=== PATIENT | male | born 1960 | race Caucasian/White ===

== ENCOUNTER 2018-04-19 11:39 | Inpatient (IN) | payer OTHER ==
[~2018-04-19] VITALS: Ht 180.3 cm; Wt 78.5 kg
[2018-04-19] VITALS (22 sets, daily range): BP systolic 78–108; BP diastolic 57–98; PULSE 48–80; RESP 13–33; Ht 180.3 cm; Wt 78.5 kg
--- NOTE | 2018-04-19 12:13 | CONS ---
Assessment/Plan Assessment/Plan Assessment/Plan (Daily) 1. ESRD on HD 2. severe sepsis due to PNA 3 . Pneumonia 4. recurrent symptomatic ascites 5. 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 Coagulopathy with thrombocytopenia due to liver cirrhosis 7. H/O HTN 8. Leucocytosis due to severe PNA Plan: seen in ED, BP improved with IV albumin given going to ICU pt regular schedule for HD is TTS, no HD today and tomorrow, will plan for next HD on Vitamin K for coaugloapthy, pt need Paracentesis for ascites, ok to give FFp and Vitamin K, to get procedure done, we will provide HD support if pt gets volume overloaded Thanks for consultation, i will continue to follow up Consultation Date/Type/Reason Admit Date/Time 04/19/18 Date of Consultation: Apr 19, 2018 Type of Consult NEPHROLOGY Reason for Consultation ESRD on HD with Hypotension Requesting Provider: SELVIN SMITH Date/Time of Note DATE: 04/19/18 TIME: 12:09 Hx of Present Illness 58 y/o male with past medical history significant only for end-stage renal disease on hemodialysis, alcoholic liver cirrhosis, thrombus cytopenia and anemia who presents to [facility] after being found hypotensive at his dialysis center. Patient arrived to his dialysis center complain of some neck pain and almost immediately after was found to have very low blood pressure was sent to the hospital. Patient is a resident at [facility] About 3 months before he was admitted ot [facility] and had been started on HD for type II hepatorenal syndrome, he has ESLD with Recurrent ascites, pt has been on lasix and aldacotne at [facility] faciliyt Today he could not finish HD due to back pain and low BP- sent to [facility] ER Constitutional: disoriented Eyes: no complaints Respiratory: pleuritic pain, shortness of breath Cardiovascular: chest pain Gastrointestinal: pain, decreased appetite, other (distensin of abdomen ) Genitourinary: no complaints Musculoskeletal: back pain, bone/joint pain, neck pain Skin: no complaints Neurologic: no complaints Endocrine: no complaints Lymphatic: no complaints Psychological: no complaints Immunologic: no complaints Past Medical History Medical History: other (ESLD due to alcoholic liver cirrhsosi, ESRD on HD , Type II HRS, Coagulopathy) Home Meds Reported Medications Thiamine* (Thiamine*) 50 Mg Tablet, 100 MG PO DAILY, TAB 04/19/18 Spironolactone* (Aldactone*) 25 Mg Tablet, 12.5 MG PO DAILY, #60 TAB 04/19/18 Guaifenesin-Dextromethorphan* (Robitussin* DM) 100MG/10MG/5ML Syrup, 10 ML PO Q6H PRN for COUGH, ML 04/19/18 Multivit/Ca Carb/B Cmplx/Fa* (Simran-Kee*) 1 Tab Tab, 1 TAB PO DAILY, TAB 04/19/18 Amino Acids/Protein Hydrolys (Pro-Stat 64 Liquid) 887 Ml Liquid, 30 ML PO BID 04/19/18 Pantoprazole* (Pantoprazole*) 40 Mg Tablet.dr, 40 MG PO AC BREAKFAST, TAB 04/19/18 Hydrocodone/Acetaminophen ([place] 5-325 Tablet) 1 Each Tablet, 1 EACH PO Q12 PRN for SEVERE PAIN LEVEL 7-10, TAB 04/19/18 Midodrine* (Midodrine*) 10 Mg Tablet, 10 MG PO TID PRN for ELEVATED BLOOD PRESSURE, TAB 04/19/18 Magnesium Oxide* (Magnesium Oxide*) 400 Mg Tablet, 400 MG PO BID, TAB 04/19/18 Lactulose* (Lactulose*) 20 Gm/30 Ml Solution, 20 GM PO TID PRN for CONSTIPATION, ML 04/19/18 Folic Acid* (Folic Acid*) 1 Mg Tablet, 1 MG PO DAILY, TAB 04/19/18 Epoetin Jose (Epogen) 10,000 Units/Ml Soln, 5000 UNITS SC TUE, THUR,SAT, VIAL 04/19/18 Allergies: Coded Allergies: No Known Allergy (Unverified , 04/19/18) Past Surgical History Past Surgical Hx: other (R chest permacath ) Family History Significant Family History: no pertinent family hx Social History Alcohol Use: none Drug Use: none Exam/Review of Systems Exam Vitals Vital Signs Date Temp Pulse Resp B/P (MAP) Pulse Ox O2 O2 Flow FiO2 Time Delivery Rate 04/19/18 97.7 90 15 76/58 (64) 100 11:44 Constitutional: distress (moderate ) Head: normocephalic ENMT: nl external ears & nose, other (no jaundice) Neck: supple, non-tender Respiratory: congested cough, crackles/rales, diminished breath sounds Cardiovascular: regular rate and rhythm, nl pulses Gastrointestinal: soft, ascites, distended Musculoskeletal: swelling (1-2+ pitting edema ) Extremities: normal pulses Neurological: [employer] II-XII intact, nl mental status Skin: nl turgor Lymph: nl lymph nodes SHEELA BELLA MD Apr 19, 2018 12:12
--- NOTE | 2018-04-19 12:16 | ERD ---
ER Documentation Chief Complaint Chief Complaint was @ HD, didnt finish HD - now hypotensive HPI The patient is a 58-year-old male, presenting to the ER from dialysis center, sent by his video game creator Dr. Sundar Hodge because of hypotensive 20 minutes into hemodialysis. He is awake, alert, able to answer question appropriately, he complains of chronic dyspnea and chronic chest discomfort, chronic abdominal discomfort. He denies fever, chills, complains of chronic neck pain, denies dysuria, diarrhea, constipation. He smokes, used to drink heavily until January 2018 Past medical history: Chronic kidney disease on hemodialysis Wednesday and Wednesday, cirrhosis, chronic pain syndrome Past surgical history: Right chest hemodialysis catheter, frequent paracentesis every 2 weeks, last paracentesis was about a week ago ROS All systems reviewed and are negative except as per history of present illness. Medications Home Meds Reported Medications Thiamine* (Thiamine*) 50 Mg Tablet, 100 MG PO DAILY, TAB 04/19/18 Spironolactone* (Aldactone*) 25 Mg Tablet, 12.5 MG PO DAILY, #60 TAB 04/19/18 Guaifenesin-Dextromethorphan* (Robitussin* DM) 100MG/10MG/5ML Syrup, 10 ML PO Q6H PRN for COUGH, ML 04/19/18 Multivit/Ca Carb/B Cmplx/Fa* (Simran-Kee*) 1 Tab Tab, 1 TAB PO DAILY, TAB 04/19/18 Amino Acids/Protein Hydrolys (Pro-Stat 64 Liquid) 887 Ml Liquid, 30 ML PO BID 04/19/18 Pantoprazole* (Pantoprazole*) 40 Mg Tablet.dr, 40 MG PO AC BREAKFAST, TAB 04/19/18 Hydrocodone/Acetaminophen ([place] 5-325 Tablet) 1 Each Tablet, 1 EACH PO Q12 PRN for SEVERE PAIN LEVEL 7-10, TAB 04/19/18 Midodrine* (Midodrine*) 10 Mg Tablet, 10 MG PO TID PRN for ELEVATED BLOOD PRESSURE, TAB 04/19/18 Magnesium Oxide* (Magnesium Oxide*) 400 Mg Tablet, 400 MG PO BID, TAB 04/19/18 Lactulose* (Lactulose*) 20 Gm/30 Ml Solution, 20 GM PO TID PRN for CONSTIPATION, ML 04/19/18 Folic Acid* (Folic Acid*) 1 Mg Tablet, 1 MG PO DAILY, TAB 04/19/18 Epoetin Jose (Epogen) 10,000 Units/Ml Soln, 5000 UNITS SC ADRIEN CRUZ,ZINA, VIAL 04/19/18 Allergies Allergies: Coded Allergies: No Known Allergy (Unverified , 04/19/18) Physical Exam Vitals Vital Signs Date Temp Pulse Resp B/P (MAP) Pulse Ox O2 O2 Flow FiO2 Time Delivery Rate 04/19/18 84 18 105/89 100 14:56 (94) 04/19/18 84 95/73 (80) 14:30 04/19/18 81 18 98/69 (79) 100 Room Air 14:07 04/19/18 87 18 97/67 (77) 100 Nasal 2.0 13:35 Cannula 04/19/18 88 19 85/57 (66) 96 Room Air 12:00 04/19/18 97.7 90 15 76/58 (64) 100 11:44 Physical Exam Const: No acute distress, pale Head: Atraumatic Eyes: Normal Conjunctiva ENT: Normal External Ears, Nose and Mouth. Neck: Full range of motion. No meningismus. Resp: Clear to auscultation bilaterally Cardio: Regular rate and rhythm, no murmurs Abd: Soft, ascites, nontender. Normal bowel sounds Skin: No petechiae or rashes Back: No midline or flank tenderness Ext: BL edema, no calf tenderness Neur: Awake and alert Psych: Normal Mood and Affect Result Diagram: 04/19/18 1230 04/19/18 1230 Results 24 hrs Laboratory Tests Test 04/19/18 12:30 04/19/18 12:36 04/19/18 14:46 White Blood Count 18.3 10^3/ul Red Blood Count 2.14 10^6/ul Hemoglobin 7.2 g/dl Hematocrit 21.5 % Mean Corpuscular Volume 100.5 fl Mean Corpuscular Hemoglobin 33.6 pg Mean Corpuscular 33.5 g/dl Hemoglobin Concent Red Cell Distribution Width 17.5 % Platelet Count 76 10^3/UL Mean Platelet Volume 12.0 fl Immature Granulocytes % 0.800 % Neutrophils % 77.3 % Lymphocytes % 9.1 % Monocytes % 11.9 % Eosinophils % 0.7 % Basophils % 0.2 % Nucleated Red Blood Cells % 0.0 /100WBC Immature Granulocytes # 0.150 10^3/ul Neutrophils # 14.1 10^3/ul Lymphocytes # 1.7 10^3/ul Monocytes # 2.2 10^3/ul Eosinophils # 0.1 10^3/ul Basophils # 0.0 10^3/ul Nucleated Red Blood Cells # 0.0 10^3/ul Prothrombin Time 32.0 Sec Prothrombin Time Ratio 2.5 INR International Normalized Ratio 3.10 Activated Partial Thromboplast > 180.0 Sec Time Sodium Level 128 mmol/L Potassium Level 5.0 mmol/L Chloride Level 93 mmol/L Carbon Dioxide Level 22 mmol/L Anion Gap 13 Blood Urea Nitrogen 30 mg/dl Creatinine 4.06 mg/dl Est Glomerular Filtrat Rate mL/min 15 mL/min Glucose Level 113 mg/dl Calcium Level 8.9 mg/dl Total Bilirubin 1.7 mg/dl Direct Bilirubin 0.10 mg/dl Indirect Bilirubin 1.6 mg/dl Aspartate Amino Transf (AST/SGOT) 47 IU/L Alanine 25 IU/L Aminotransferase (ALT/SGPT) Alkaline Phosphatase 143 IU/L Troponin I < 0.012 ng/ml Total Protein 5.8 g/dl Albumin 2.3 g/dl Globulin 3.50 g/dl Albumin/Globulin Ratio 0.65 Lipase 881 U/L POC Venous Lactate 4.1 mmol/L 2.9 mmol/L Current Medications Medications Dose Sig/Evans Start Time Status Last (Trade) Ordered Route PRN Stop Time Admin Dose Reason Admin Albumin 100 ml @ Q1H IV 04/19/18 DC 04/19/18 Human 100 mls/hr 12:30 13:43 04/19/18 14:29 Calcium 1,000 mg ONCE ONCE 04/19/18 DC 04/19/18 Chloride IV 13:00 12:53 (Ca Chloride 04/19/18 13:03 10% Syg) Vancomycin 250 ml @ ONCE ONCE 04/19/18 DC 04/19/18 HCl 125 mls/hr IVPB 13:00 13:43 04/19/18 14:59 Piperacillin 50 ml @ ONCE ONCE 04/19/18 DC 04/19/18 Sod/ 100 mls/hr IVPB 13:00 12:55 Tazobactam 04/19/18 13:29 Sod Vancomycin VANCOMYCIN PER 04/19/18 HCl (Vanco PER PHARMACY PROTOCOL XX 14:00 Iv Per Pharmacy) Piperacillin 100 ml @ Q6 IVPB 04/19/18 UNV Sod/ 200 mls/hr 18:00 Tazobactam Sod Sodium 1,000 ml @ Q24H IV 04/19/18 Chloride 40 mls/hr 13:41 IV Flush 3 ml PER 04/19/18 (NS 3 ml) PROTOCOL IV 14:00 Ondansetron 4 mg Q6H PRN 04/19/18 HCl (Zofran IV 14:00 Inj) NAUSEA/VOMITI NG Morphine 1 mg Q4H PRN 04/19/18 Sulfate IV .PAIN 14:00 (morphine) 7-10 40 mg DAILY@06 04/20/18 Pantoprazole IV 06:00 (Protonix Iv) 100 ml @ Q8H PRN 04/19/18 Acetaminophen 400 mls/hr IVPB fever 14:00 or pain 04/20/18 13:59 Piperacillin 50 ml @ Q8 IVPB 04/19/18 DC Sod/ 100 mls/hr 22:00 Tazobactam 04/19/18 22:00 Sod Piperacillin 50 ml @ Q6 IVPB 04/19/18 Sod/ 100 mls/hr 18:00 Tazobactam Sod Vancomycin 100 ml @ ONCE ONCE 04/19/18 HCl 100 mls/hr IVPB 16:00 04/19/18 16:59 10 mg ONCE ONCE 04/19/18 DC Phytonadione SC 15:00 (Vitamin K) 04/19/18 15:01 Procedures/[place] [id number] Radiology Main Line: [phone] DIAGNOSTIC IMAGING REPORT Patient: RJ HUDSON : 1960 Age: 58 Sex: M MR #: [id number] DOS: 04/19/18 1151 Ordering MD: JOSE BURGOS MD Location: E/R Room/Bed: PROCEDURE: XR chest. CLINICAL INDICATION: Possible sepsis TECHNIQUE: A single portable view of the chest was obtained. COMPARISON: None. FINDINGS: Right IJ central venous catheter ends in the right atrium. Right basilar opacity may represent atelectasis or airspace disease. The left lung is clear. There is no pleural effusion or pneumothorax. The cardiac and mediastinal contours are within normal limits. IMPRESSION: 1. Right basilar opacity representing atelectasis or airspace disease. RPTAT: AAEE Physician Doreen Date Time Electronically viewed and signed by Guillermo King Physician on 04/19/2018 13:08 RF/ CC: JOSE BURGOS MD Pending [phone] MEDICAL MAKING DECISION: The patient is a 58-year-old male, presenting with acute fluid overload, acute septic shock, acute pneumonia, recurrent ascites, acute coagulopathy, hyponatremia, suspected pancreatitis. He was treated with albumin 25% 200 mL IV for acute hypotension, calcium chloride 1 g IV due to mis sed dialysis to stabilize cardiac membrane prior to availability of the labs, vancomycin IV and Zosyn IV for acute septic shock He will require abdominal paracentesis when he is stable The differential diagnoses considered include but are not limited to pneumonia, aspiration pneumonia, UTI, pyelonephritis, SBP, pancreatitis MDM: Patient's infectious symptoms have not stabilized and the patient is at risk of rapid decompensation. The patient will be admitted for careful hydration, antibiotic therapy, and infectious source control. SEVERE SEPSIS CRITERIA: Infectious source: pna End organ damage indicated by: [Lactate > 2.0 mmol/L Hypotension (SBP < 90 or >40 mmHG drop or MAP < 65) Acute Resp Failure (sat < 92% w/o oxygen) Kiln Stoker > 2.0 INR > 1.5 Plt < 100 SEPSIS MANAGEMENT Time of recognition of septic shock:12:45 pm 3 HOUR BUNDLE Blood cultures x 2 before broad-spectrum antibiotics: [Yes] 30 ml/kg NS bolus [Not Completed b/c he has acute fluid overload Initial lactate []4.1 Repeat lactate Pending SEPTIC SHOCK ASSESSMENT: Yes lactic acid > 4.0 [No] Persistent hypotension (SBP < 90 or 40 mmHg drop, MAP < 65) despite 30 mL/kg IV fluid bolus VOLUME REASSESSMENT FOR SEPTIC SHOCK: Reevaluation Time: []14:56 hr Temp []97.7, BP []105/89, HR []84, RR[]18, Pox []100% Heart [Regular rate & rhythm] Lungs [No crackles] Skin [Warm & dry] Cap Refill [Less than 2 seconds] Peripheral pulses [Radially present] PERSISTENT HYPOTENSION TREATMENT: Comfort care [No] Central line [Not Required] but the hospitalist Dr Knapp requested it. IR Dr Gastelum will do it under fluro b/c INR 3.1 and platelet 76, I d/w with Dr Gastelum Vasopressor started [Not required] I considered further perfusion assessment with CVP measurement, SCVO2, bedside ultrasound volume assessment, passive leg raise, trial of further fluid bolus. And proceeded with [ broad spectrum antibiotics, and admission.] CRITICAL CARE Critical care time [35] minutes Emergent fluid management while maintaining close respiratory support. Provision of immediate and broad-spectrum antibiotic therapy. Simultaneous assessment for possible sources in order to direct targeted therapy. Consideration for invasive and chemical support to prevent cardiopulmonary collapse. Critical care time is independent of procedures performed. Departure Diagnosis: Primary Impression: Septic shock Additional Impressions: PNA (pneumonia) Fluid overload Coagulopathy Hyponatremia Pancreatitis Ascites Anemia Thrombocytopenia Condition: Critical Comments I discussed the findings with the patient. I discussed the patient with the hospitalist Dr Knapp at 1:20 pm. who was made aware of the lab, the treatment, the patient condition. The patient is admitted to ICU Disclaimer: Inadvertent spelling and grammatical errors are likely due to EHR/dictation software use and do not reflect on the overall quality of patient care. Also, please note that the electronic time recorded on this note does not necessarily reflect the actual time of the patient encounter. GEOVANNA TSAI MD Apr 19, 2018 12:16
[2018-04-19] MEDS: ALBUMIN HUMAN 25% 100 ML IV SCH ×3 (12:52→23:47)
[2018-04-19] MEDS ORDERED: PIPER-TAZO 2.25 GM (PMX) 50 ML IVPB ONE (13:00)
[2018-04-19] MEDS ORDERED: CA CHLORIDE 10% 10 ML SYRINGE IV ONE (13:00)
[2018-04-19] MEDS ORDERED: VANCOMYCIN 1 GM (PMX) 250 ML IVPB ONE (13:00)
[2018-04-19] MEDS ORDERED: SOD CHLORIDE 0.9% 1,000 ML IV SCH (13:41)
[2018-04-19] MEDS ORDERED: ACETAMINOPHEN 1000MG/100ML IV 100 ML IVPB PRN (14:00)
[2018-04-19] MEDS ORDERED: VANCOMYCIN IV PER PHARMACY XX SCH (14:00)
[2018-04-19] MEDS ORDERED: NACL 0.9% 3 ML SYG IV SCH (14:00)
[2018-04-19] MEDS ORDERED: ONDANSETRON 4 MG INJ IV PRN (14:00)
[2018-04-19] MEDS ORDERED: morphine 2 MG INJ IV PRN (14:00)
[2018-04-19] MEDS ORDERED: EPO10ESRD SC (14:51)
[2018-04-19] MEDS ORDERED: FOLI-49 PO (14:51)
[2018-04-19] MEDS ORDERED: LACT20SO2 PO (14:52)
[2018-04-19] MEDS ORDERED: MAGN400T28 PO (14:52)
[2018-04-19] MEDS ORDERED: MIDO10TA PO (14:52)
[2018-04-19] MEDS ORDERED: HYDR-4011 PO (14:53)
[2018-04-19] MEDS ORDERED: PANT40TA4 PO (14:53)
[2018-04-19] MEDS ORDERED: NEPH PO (14:54)
[2018-04-19] MEDS ORDERED: GUAI5SYR2 PO (14:54)
[2018-04-19] MEDS ORDERED: AMIN887L PO (14:54)
[2018-04-19] MEDS ORDERED: THIA50TA7 PO (14:55)
[2018-04-19] MEDS ORDERED: SPIR25TA PO (14:55)
[2018-04-19] MEDS ORDERED: PHYTONADIONE 10 MG/ML INJ SC ONE (15:00)
--- NOTE | 2018-04-19 15:21 | HP ---
Date/Time of Note Date/Time of Note DATE: 04/19/18 TIME: 15:21 Assessment/Plan VTE Prophylaxis Pharmacological prophylaxis: other Lines/Catheters IV Catheter Type (from Nrs): Saline Lock Assessment/Plan Hospital Course Patient is a male with past medical history significant only for end- stage renal disease on hemodialysis, alcoholic liver cirrhosis, thrombus cytopenia and anemia who presents to [facility] after being fo und hypotensive at his dialysis center. Patient arrived to his dialysis center complain of some neck pain and almost immediately after was found to have very low blood pressure was sent to the hospital. Currently patient is alert and oriented x4 and able to answer all questions. Patient has no acute complaints at this time except for generalized weakness and for chronic issues including chronic abdominal pain, chronic shortness of breath as well as chronic chest discomfort.. When asked if there are any acute issues of new pain or issues patient denies. Patient is a resident at [facility] Objective Physical exam General: Patient is laying in bed and answers questions appropriately Mentation: Patient is alert and oriented 4, Head: Normocephalic atraumatic Eyes: EOMI, pupils reactive to light Neck: Supple, nontender, midline Respiratory: Clear to auscultation bilaterally Cardiovascular: regular rate, no obvious murmurs Gastrointestinal: Massively distended abdomen, bowel sounds heard. Neurological: Unable to fully assess due to generalized weakness Skin: 2+ pitting edema in lower extremity bilaterally Assessment and plan Pneumonia -DuoNeb -IV antibiotic Severe sepsis -Responding to albumin, will add very low normal saline as patient is on dialy sis -Since albumin is transient, will obtain central venous catheter access and use pressors as necessary -Blood culture -Secondary to above pneumonia Alcoholic liver cirrhosis -Patient states that he only heard of this diagnosis today which is highly unlikely, patient states he had a distended abdomen for over many years -CT of the abdomen and pelvis pending -Continue spironolactone as blood pressure tolerates -Continue lactulose as blood pressure tolerates Elevated INR -Likely secondary to alcoholic liver cirrhosis -Vitamin K x1 subcu and reassess in a.m. Anemia -Patient does have a history of anemia, transfuse as needed likely due to anemia of chronic disease Elevated lipase -Patient has no new abdominal pain, likely chronic elevated lipase, however will monitor, continue patient only on clears and if continues to have pain will put n.p.o. -CT abdomen pelvis pending Hyponatremia -Patient is on hemodialysis and a cirrhotic, likely multifactorial with body hemodynamics, nephrology recommendations appreciated Disposition -Patient is alert and oriented x4 and stated that he would like to be DO NOT RESUSCITATE. Changed in the computer -ICU care for severe hypotension which may need pressors. Result Diagram: 04/19/18 1230 04/19/18 1230 Results 24hrs Laboratory Tests Test 04/19/18 12:30 04/19/18 12:36 04/19/18 14:46 White Blood Count 18.3 H Red Blood Count 2.14 L Hemoglobin 7.2 L Hematocrit 21.5 L Mean Corpuscular Volume 100.5 Mean Corpuscular Hemoglobin 33.6 H Mean Corpuscular Hemoglobin Concent 33.5 Red Cell Distribution Width 17.5 H Platelet Count 76 L Mean Platelet Volume 12.0 H Immature Granulocytes % 0.800 H Neutrophils % 77.3 H Lymphocytes % 9.1 L Monocytes % 11.9 H Eosinophils % 0.7 Basophils % 0.2 Nucleated Red Blood Cells % 0.0 Immature Granulocytes # 0.150 H Neutrophils # 14.1 H Lymphocytes # 1.7 Monocytes # 2.2 H Eosinophils # 0.1 Basophils # 0.0 Nucleated Red Blood Cells # 0.0 Prothrombin Time 32.0 H Prothrombin Time Ratio 2.5 INR International Normalized Ratio 3.10 Activated Partial Thromboplast Time > 180.0 *H Sodium Level 128 L Potassium Level 5.0 Chloride Level 93 L Carbon Dioxide Level 22 Anion Gap 13 Blood Urea Nitrogen 30 H Creatinine 4.06 H Est Glomerular Filtrat Rate mL/min 15 L Glucose Level 113 Calcium Level 8.9 Total Bilirubin 1.7 H Direct Bilirubin 0.10 Indirect Bilirubin 1.6 H Aspartate Amino Transf (AST/SGOT) 47 H Alanine Aminotransferase (ALT/SGPT) 25 Alkaline Phosphatase 143 H Troponin I < 0.012 Total Protein 5.8 L Albumin 2.3 L Globulin 3.50 H Albumin/Globulin Ratio 0.65 Lipase 881 H POC Venous Lactate 4.1 *H 2.9 *H HPI/ROS Admit Date/Time Admit Date/Time 04/19/18 PMH/Family/Social Past Medical History Medications Current Medications Vancomycin HCl (Vanco Iv Per Pharmacy) VANCOMYCIN PER PHARMACY PER PROTOCOL XX ; Start 04/19/18 at 14:00 Sodium Chloride 1,000 ml @ 40 mls/hr Q24H IV ; Start 04/19/18 at 13:41 IV Flush (NS 3 ml) 3 ml PER PROTOCOL IV ; Start 04/19/18 at 14:00 Ondansetron HCl (Zofran Inj) 4 mg Q6H PRN IV NAUSEA/VOMITING; Start 04/19/18 at 14:00 Morphine Sulfate (morphine) 1 mg Q4H PRN IV .PAIN 7-10; Start 04/19/18 at 14:00 Pantoprazole (Protonix Iv) 40 mg DAILY@06 IV ; Start 04/20/18 at 06:00 Acetaminophen 100 ml @ 400 mls/hr Q8H PRN IVPB fever or pain; Start 04/19/18 at 14:00; Stop 04/20/18 at 13:59 Piperacillin Sod/ Tazobactam Sod 50 ml @ 100 mls/hr Q6 IVPB ; Start 04/19/18 at 18:00 Vancomycin HCl 100 ml @ 100 mls/hr ONCE ONCE IVPB ; Start 04/19/18 at 16:00; Stop 04/19/18 at 16:59 Folic Acid (Folic Acid) 1 mg DAILY PO ; Start 04/20/18 at 09:00; Status UNV Lactulose (Enulose) 20 gm Q8 PO ; Start 04/20/18 at 14:00; Status UNV Midodrine (Proamatine) 10 mg Q8 PO ; Start 04/19/18 at 22:00; Status UNV Spironolactone (Aldactone) 12.5 mg DAILY PO ; Start 04/21/18 at 09:00; Status UNV Thiamine HCl (Vitamin B1) 100 mg DAILY PO ; Start 04/20/18 at 09:00; Status UNV Coded Allergies: No Known Allergy (Unverified , 04/19/18) Social History Smoking Status: Current some day smoker Exam/Review of Systems Vital Signs Vitals Vital Signs Date Temp Pulse Resp B/P (MAP) Pulse Ox O2 O2 Flow FiO2 Time Delivery Rate 04/19/18 84 18 105/89 100 14:56 (94) 04/19/18 Room Air 14:07 04/19/18 2.0 13:35 04/19/18 97.7 11:44 SELVIN SMITH Apr 19, 2018 15:21
[2018-04-19] MEDS ORDERED: ALBUTEROL/IPRATROPIUM (NEB) 3 ML AMP HHN PRN (15:30)
[2018-04-19] MEDS ORDERED: VANCOMYCIN 500 MG (PMX) 100 ML IVPB ONE (16:00)
[2018-04-19] MEDS ORDERED: PIPER-TAZO 3.375 GM IV (PMX) 100 ML IVPB SCH (18:00)
[2018-04-19] MEDS: PIPER-TAZO 2.25 GM/NS 50 ML IVPB SCH ×2 (18:16→23:53)
[2018-04-19] MEDS: ALBUTEROL/IPRATROPIUM (NEB) 3 ML AMP HHN SCH (20:00)
[2018-04-19] MEDS ORDERED: PIPER-TAZO 2.25 GM/NS 50 ML IVPB SCH (22:00)
[2018-04-19] MEDS: NORepinephrine 8MG/250 ML (PMX 250 ML IV SCH (22:16)
[2018-04-19] MEDS: MIDODRINE 5 MG TAB PO SCH (22:22)
[2018-04-19] MEDS ORDERED: HYDROCODONE/APAP (5/325) TAB PO PRN ×2 (23:30)
[2018-04-20] VITALS (93 sets, daily range): BP systolic 85–113; BP diastolic 59–82; PULSE 66–102; RESP 11–28
[2018-04-20] MEDS ORDERED: HYDROmorphONE 1 MG/ML SYG IV ONE (01:30)
[2018-04-20] MEDS: PANTOPRAZOLE 40 MG INJ IV SCH (05:59)
[2018-04-20] MEDS: MIDODRINE 5 MG TAB PO SCH ×3 (06:00→21:16)
[2018-04-20] MEDS: PIPER-TAZO 2.25 GM/NS 50 ML IVPB SCH ×2 (06:00→18:33)
[2018-04-20] MEDS: ALBUMIN HUMAN 25% 100 ML IV SCH (06:04)
[2018-04-20] MEDS ORDERED: PENDING SANTYL ORDER FOR WOUND CARE XX PRN (08:00)
[2018-04-20] MEDS: ALBUTEROL/IPRATROPIUM (NEB) 3 ML AMP HHN SCH ×3 (08:50→19:59)
--- NOTE | 2018-04-20 08:59 | CONS ---
Assessment/Plan Assessment/Plan Assessment/Plan (Daily) Assessment/Plan (Daily) 1. ESRD on HD 2. severe sepsis due to PNA 3 . Pneumonia 4. recurrent symptomatic ascites 5. 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 Coagulopathy with thrombocytopenia due to liver cirrhosis 7. H/O HTN 8. Leucocytosis due to severe PNA Plan: pt remaiend coagulopathic, no plan for HD today, s/p family meeting, they decided for comfort care no plan for HD tomorrow Consultation Date/Type/Reason Admit Date/Time Apr 19, 2018 at 13:43 Initial Consult Date 04/19/18 Type of Consult NEPHROLOGY Requesting Provider: SELVIN SMITH Date/Time of Note DATE: 04/20/18 TIME: 08:59 24 HR Interval Summary Free Text/Dictation pt stable but bP has been low, on levophed, Asictes + Exam/Review of Systems Exam Vitals Vital Signs Date Temp Pulse Resp B/P (MAP) Pulse Ox O2 O2 Flow FiO2 Time Delivery Rate 04/20/18 70 16 93/67 (76) 98 08:15 04/20/18 Nasal 2.0 08:02 Cannula 04/20/18 95.0 08:00 Intake and Output 04/19/18 04/19/18 04/20/18 1515:00 23:00 07:00 IntakeIntake Total 150 ml 407.03 ml 345.625 ml OutputOutput Total 0 ml BalanceBalance 150 ml 407.03 ml 345.625 ml Exam Constitutional: distress (moderate ) Head: normocephalic ENMT: nl external ears & nose, other (no jaundice) Neck: supple, non-tender Respiratory: congested cough, crackles/rales, diminished breath sounds Cardiovascular: regular rate and rhythm, nl pulses Gastrointestinal: soft, ascites, distended Musculoskeletal: swelling (1-2+ pitting edema ) Extremities: normal pulses Neurological: SILK OPENER II-XII intact, nl mental status Skin: nl turgor Lymph: nl lymph nodes Results Result Diagram: 04/20/18 0736 04/20/18 0430 Results 24hrs Laboratory Tests Test 04/19/18 12:30 04/19/18 12:36 04/19/18 14:46 04/19/18 16:54 White Blood Count 18.3 H Red Blood Count 2.14 L Hemoglobin 7.2 L Hematocrit 21.5 L Mean Corpuscular 100.5 Volume Mean Corpuscular 33.6 H Hemoglobin Mean Corpuscular 33.5 Hemoglobin Concent Red Cell 17.5 H Distribution Width Platelet Count 76 L Mean Platelet Volume 12.0 H Immature 0.800 H Granulocytes % Neutrophils % 77.3 H Lymphocytes % 9.1 L Monocytes % 11.9 H Eosinophils % 0.7 Basophils % 0.2 Nucleated Red Blood 0.0 Cells % Immature 0.150 H Granulocytes # Neutrophils # 14.1 H Lymphocytes # 1.7 Monocytes # 2.2 H Eosinophils # 0.1 Basophils # 0.0 Nucleated Red Blood 0.0 Cells # Prothrombin Time 32.0 H Prothrombin Time 2.5 Ratio INR International 3.10 Normalized Ratio Activated > 180.0 *H Partial Thromboplast Time Sodium Level 128 L Potassium Level 5.0 Chloride Level 93 L Carbon Dioxide Level 22 Anion Gap 13 Blood Urea Nitrogen 30 H Creatinine 4.06 H Est Glomerular 15 L Filtrat Rate mL/min Glucose Level 113 Calcium Level 8.9 Total Bilirubin 1.7 H Direct Bilirubin 0.10 Indirect Bilirubin 1.6 H Aspartate Amino 47 H Transf (AST/SGOT) Alanine 25 Aminotransferase (AL T/SGPT) Alkaline Phosphatase 143 H Troponin I < 0.012 Total Protein 5.8 L Albumin 2.3 L Globulin 3.50 H Albumin/Globulin 0.65 Ratio Lipase 881 H POC Venous Lactate 4.1 *H 2.9 *H Lactic Acid Level 2.8 *H Test 04/20/18 04:30 04/20/18 07:36 Platelet Count 66 L 57 #L Prothrombin Time 20.3 #H Prothrombin Time 1.6 Ratio INR International 1.73 Normalized Ratio Activated 51.1 H Partial Thromboplast Time Thrombin Time 19.2 H Sodium Level 128 L Potassium Level 4.2 Chloride Level 90 L Carbon Dioxide Level 22 Anion Gap 16 H Blood Urea Nitrogen 35 H Creatinine 4.45 H Est Glomerular 14 L Filtrat Rate mL/min Glucose Level 108 Calcium Level 9.7 Magnesium Level 2.5 Total Bilirubin 2.5 H Direct Bilirubin 0.50 #H Indirect Bilirubin 2.0 H Aspartate Amino 38 Transf (AST/SGOT) Alanine 24 Aminotransferase (AL T/SGPT) Alkaline Phosphatase 118 Ammonia 22 Total Protein 6.2 Albumin 3.2 L Globulin 3.00 Albumin/Globulin 1.06 Ratio White Blood Count 9.6 # Red Blood Count 1.75 L Hemoglobin 5.9 *L Hematocrit 17.5 L Mean Corpuscular 100.0 Volume Mean Corpuscular 33.7 H Hemoglobin Mean Corpuscular 33.7 Hemoglobin Concent Red Cell 17.5 H Distribution Width Mean Platelet Volume 11.3 H Immature 0.500 H Granulocytes % Neutrophils % Lymphocytes % Monocytes % Eosinophils % Basophils % Nucleated Red Blood 0.0 Cells % Immature 0.050 H Granulocytes # Neutrophils # Lymphocytes # Monocytes # Eosinophils # Basophils # Nucleated Red Blood Cells # Medications Medication Current Medications Vancomycin HCl (Vanco Iv Per Pharmacy) VANCOMYCIN PER PHARMACY PER PROTOCOL XX ; Start 04/19/18 at 14:00 IV Flush (NS 3 ml) 3 ml PER PROTOCOL IV ; Start 04/19/18 at 14:00 Ondansetron HCl (Zofran Inj) 4 mg Q6H PRN IV NAUSEA/VOMITING; Start 04/19/18 at 14:00 Morphine Sulfate (morphine) 1 mg Q4H PRN IV .PAIN 7-10 Last administered on 04/19/18at 20:03; Admin Dose 1 MG; Start 04/19/18 at 14:00 Pantoprazole (Protonix Iv) 40 mg DAILY@06 IV Last administered on 04/20/18at 05:59; Admin Dose 40 MG; Start 04/20/18 at 06:00 Acetaminophen 100 ml @ 400 mls/hr Q8H PRN IVPB fever or pain; Start 04/19/18 at 14:00; Stop 04/20/18 at 13:59 Piperacillin Sod/ Tazobactam Sod 50 ml @ 100 mls/hr Q6 IVPB Last administered on 04/20/18at 06:00; Admin Dose 100 MLS/HR; Start 04/19/18 at 18:00 Folic Acid (Folic Acid) 1 mg DAILY PO ; Start 04/20/18 at 09:00 Lactulose (Enulose) 20 gm Q8 PO ; Start 04/20/18 at 14:00 Midodrine (Proamatine) 10 mg Q8 PO Last administered on 04/19/18at 22:22; Admin Dose 10 MG; Start 04/19/18 at 22:00 Spironolactone (Aldactone) 12.5 mg DAILY PO ; Start 04/21/18 at 09:00 Thiamine HCl (Vitamin B1) 100 mg DAILY PO ; Start 04/20/18 at 09:00 Albuterol/ Ipratropium (Duoneb) 3 ml Q6HWA RESP THERAPY HHN Last administered on 04/20/18at 08:50; Admin Dose 3 ML; Start 04/19/18 at 20:00 Albuterol/ Ipratropium (Duoneb) 3 ml Q2H RESP THERAPY PRN HHN shortness of breath; Start 04/19/18 at 15:30 Norepinephrine 250 ml @ 1.875 mls/ hr TITRATE IV Last administered on 04/19/18at 22:16; Admin Dose 9.375 MLS/HR; Start 04/19/18 at 22:00 Acetaminophen/ Hydrocodone Bitart ([place] (5/325)) 1 tab Q4H PRN PO MODERATE PAIN LEVEL 4-6; Start 04/19/18 at 23:30 Acetaminophen/ Hydrocodone Bitart ([place] (5/325)) 2 tab Q4H PRN PO PAIN LEVEL 6-10 Last administered on 04/19/18at 23:45; Admin Dose 2 TAB; Start 04/19/18 at 23:30 Miscellaneous Information (Pending Santyl Order For Wound Care) This patient sibley... PRN PRN XX WOUND CARE; Start 04/20/18 at 08:00 SHEELA BELLA MD Apr 20, 2018 08:59
[2018-04-20] MEDS: FOLIC ACID 1 MG TAB PO SCH (09:49)
[2018-04-20] MEDS: THIAMINE 100 MG TAB PO SCH (09:49)
--- NOTE | 2018-04-20 10:18 | PN ---
Date/Time of Note Date/Time of Note DATE: 04/20/18 TIME: 10:13 Objective Vitals Vital Signs Date Temp Pulse Resp B/P (MAP) Pulse Ox O2 O2 Flow FiO2 Time Delivery Rate 04/20/18 86 20 98 Nasal 2.0 08:50 Cannula 04/20/18 93/67 (76) 08:15 04/20/18 95.0 08:00 Intake and Output 04/19/18 04/19/18 04/20/18 1515:00 23:00 07:00 IntakeIntake Total 150 ml 407.03 ml 345.625 ml OutputOutput Total 0 ml BalanceBalance 150 ml 407.03 ml 345.625 ml Results Result Diagram: 04/20/18 0736 04/20/18 0430 Medications Medications Current Medications Vancomycin HCl (Vanco Iv Per Pharmacy) VANCOMYCIN PER PHARMACY PER PROTOCOL XX ; Start 04/19/18 at 14:00 IV Flush (NS 3 ml) 3 ml PER PROTOCOL IV ; Start 04/19/18 at 14:00 Ondansetron HCl (Zofran Inj) 4 mg Q6H PRN IV NAUSEA/VOMITING; Start 04/19/18 at 14:00 Morphine Sulfate (morphine) 1 mg Q4H PRN IV .PAIN 7-10 Last administered on 04/19/18at 20:03; Admin Dose 1 MG; Start 04/19/18 at 14:00 Pantoprazole (Protonix Iv) 40 mg DAILY@06 IV Last administered on 04/20/18at 05:59; Admin Dose 40 MG; Start 04/20/18 at 06:00 Acetaminophen 100 ml @ 400 mls/hr Q8H PRN IVPB fever or pain; Start 04/19/18 at 14:00; Stop 04/20/18 at 13:59 Piperacillin Sod/ Tazobactam Sod 50 ml @ 100 mls/hr Q6 IVPB Last administered on 04/20/18at 06:00; Admin Dose 100 MLS/HR; Start 04/19/18 at 18:00 Folic Acid (Folic Acid) 1 mg DAILY PO Last administered on 04/20/18at 09:49; Admin Dose 1 MG; Start 04/20/18 at 09:00 Lactulose (Enulose) 20 gm Q8 PO ; Start 04/20/18 at 14:00 Midodrine (Proamatine) 10 mg Q8 PO Last administered on 04/19/18at 22:22; Admin Dose 10 MG; Start 04/19/18 at 22:00 Spironolactone (Aldactone) 12.5 mg DAILY PO ; Start 04/21/18 at 09:00 Thiamine HCl (Vitamin B1) 100 mg DAILY PO Last administered on 04/20/18at 09:49; Admin Dose 100 MG; Start 04/20/18 at 09:00 Albuterol/ Ipratropium (Duoneb) 3 ml Q6HWA RESP THERAPY HHN Last administered on 04/20/18at 08:50; Admin Dose 3 ML; Start 04/19/18 at 20:00 Albuterol/ Ipratropium (Duoneb) 3 ml Q2H RESP THERAPY PRN HHN shortness of breath; Start 04/19/18 at 15:30 Norepinephrine 250 ml @ 1.875 mls/ hr TITRATE IV Last administered on 04/19/18at 22:16; Admin Dose 9.375 MLS/HR; Start 04/19/18 at 22:00 Acetaminophen/ Hydrocodone Bitart ([place] (5/325)) 1 tab Q4H PRN PO MODERATE PAIN LEVEL 4-6; Start 04/19/18 at 23:30 Acetaminophen/ Hydrocodone Bitart ([place] (5/325)) 2 tab Q4H PRN PO PAIN LEVEL 6-10 Last administered on 04/19/18at 23:45; Admin Dose 2 TAB; Start 04/19/18 at 23:30 Miscellaneous Information (Pending [facility] Order For Wound Care) This patient sibley... PRN PRN XX WOUND CARE; Start 04/20/18 at 08:00 VTE Prophylaxis Risk score (from Nsg)>0 risk: 5 SCD applied (from Nsg): Yes Lines/Catheters IV Catheter Type: Maria in Place: Yes Cont'd maria catheter reason: urinary retention Assessment/Plan Hospital Course Subjective -Discussed with patient and patient's sister, both are stating that the patient is tired of his chronic condition, and would like to now pursue hospice. It was clearly explained that hospice would likely mean he would pass away soon as they would not dialyze him, patient understands the. Patient alert and oriented x4. Objective Physical exam General: Patient is laying in bed and answers questions appropriately Mentation: Patient is alert and oriented 4, Head: Normocephalic atraumatic Eyes: EOMI, pupils reactive to light Neck: Supple, nontender, midline Respiratory: Clear to auscultation bilaterally Cardiovascular: regular rate, no obvious murmurs Gastrointestinal: Massively distended abdomen, bowel sounds heard. Neurological: Able to move upper extremity, unable to move lower extremity due to generalized weakness, however sensation intact. Skin: 2+ pitting edema in lower extremity bilaterally Assessment and plan Pneumonia -DuoNeb -IV antibiotic Septic shock -Pressors as needed -Albumin as needed -Blood culture -Secondary to above pneumonia Alcoholic liver cirrhosis -Patient understands that he has had alcoholic liver cirrhosis for many years -CT of the abdomen and pelvis noted -Continue spironolactone as blood pressure tolerates -Continue lactulose as blood pressure tolerates Elevated INR -Likely secondary to alcoholic liver cirrhosis -Vitamin K x1 subcu, improved significantly Anemia -Patient does have a history of anemia, transfuse as needed likely due to anemia of chronic disease Elevated lipase -Patient has no new abdominal pain, likely chronic elevated lipase, however will monitor, continue patient only on clears and if continues to have pain will put n.p.o. -CT abdomen pelvis not showing acute pancreatitis Hyponatremia -Patient is on hemodialysis and a cirrhotic, likely multifactorial with body hemodynamics, nephrology recommendations appreciated Disposition -Patient is alert and oriented x4 and stated that he would like to be DO NOT RESUSCITATE. Changed in the computer -ICU care for severe hypotension which may need pressors. More than 40 minutes of been spent on this critical care encounter -Patient and patient's sister have expressed desire to be placed on hospice, patient would like to attempt to try outpatient home hospice at [facility] instead of hospice inpatient, will attempt to stabilize patient so will make stable for outpatient transfer, however if we cannot get off pressors we will have to consult general inpatient hospice. At this time patient states that if he continues to deteriorate that he is okay with not aggressively increasing care but would like the current care that he is getting right now to continue for now. Patient understands that with hospice he will not be getting dialysis and that he will likely pass away fairly quickly. SELVIN SMITH Apr 20, 2018 10:18
[2018-04-20] MEDS ORDERED: COLLAGENASE 30 GM TUBE TOP SCH (12:00)
[2018-04-20] MEDS ORDERED: COLLAGENASE 30 GM TUBE TOP PRN (12:00)
[2018-04-20] MEDS: ALBUMIN HUMAN 25% 50 ML IV SCH ×2 (12:07→18:44)
[2018-04-20] MEDS ORDERED: COLLAGENASE 5 GM (UD JAR) TOP PRN (12:30)
[2018-04-20] MEDS: COLLAGENASE 5 GM (UD JAR) TOP SCH (13:34)
[2018-04-20] MEDS ORDERED: LACTULOSE 30ML CUP PO SCH (14:00)
--- NOTE | 2018-04-20 15:05 | DS ---
Date/Time of Note Date/Time of Note DATE: 04/20/18 TIME: 15:04 Discharge Summary Admission/Discharge Info Admit Date/Time Apr 19, 2018 at 13:43 Discharge Date/Time Patient Condition: Stable Hospital Course Patient is a male with a past medical history significant for end- stage renal disease on hemodialysis as well as alcoholic liver cirrhosis who presented to [facility] from dialysis center for hypotension. After being treated for septic shock and in the ICU, it was conveyed to me by the patient and the patient's sister over the phone that they would like to pursue hospice care (comfort measures only). Was given patient's very poor situation with septic shock due to pneumonia, alcoholic liver cirrhosis that is end-stage with a significantly distended abdomen causing pain, as well as end- stage renal disease, it was made decision to place patient on hospice. Current measures will be continued with pressors as needed until inpatient hospice company can take over, pain medication for patient's generalized pain and abdominal pain will be administered as needed. Patient stated that he was tired of all his illnesses and he has no quality of life and would like to stop all medical measures at this time. Patient is currently waiting for family and will be made comfortable. Discharge diagnosis Pneumonia Septic shock Alcoholic liver cirrhosis, end-stage Elevated INR Anemia Hyponatremia End-stage renal disease on hemodialysis Thrombocytopenia Lactic acidosis Elevated bilirubin Home Meds Reported Medications Thiamine* (Thiamine*) 50 Mg Tablet, 100 MG PO DAILY, TAB 04/19/18 Spironolactone* (Aldactone*) 25 Mg Tablet, 12.5 MG PO DAILY, #60 TAB 04/19/18 Guaifenesin-Dextromethorphan* (Robitussin* DM) 100MG/10MG/5ML Syrup, 10 ML PO Q6H PRN for COUGH, ML 04/19/18 Multivit/Ca Carb/B Cmplx/Fa* (Simran-Kee*) 1 Tab Tab, 1 TAB PO DAILY, TAB 04/19/18 Amino Acids/Protein Hydrolys (Pro-Stat 64 Liquid) 887 Ml Liquid, 30 ML PO BID 04/19/18 Pantoprazole* (Pantoprazole*) 40 Mg Tablet.dr, 40 MG PO AC BREAKFAST, TAB 04/19/18 Hydrocodone/Acetaminophen ([place] 5-325 Tablet) 1 Each Tablet, 1 EACH PO Q12 PRN for SEVERE PAIN LEVEL 7-10, TAB 04/19/18 Midodrine* (Midodrine*) 10 Mg Tablet, 10 MG PO TID PRN for ELEVATED BLOOD PRESSURE, TAB 04/19/18 Magnesium Oxide* (Magnesium Oxide*) 400 Mg Tablet, 400 MG PO BID, TAB 04/19/18 Lactulose* (Lactulose*) 20 Gm/30 Ml Solution, 20 GM PO TID PRN for CONSTIPATION, ML 04/19/18 Folic Acid* (Folic Acid*) 1 Mg Tablet, 1 MG PO DAILY, TAB 04/19/18 Epoetin Jose (Epogen) 10,000 Units/Ml Soln, 5000 UNITS SC KADYE, ADRIEN,SAT, VIAL 04/19/18 Primary Care Provider Erik Hodge MD Time spent on discharge: > 30 minutes Pending Labs Laboratory Tests Test 04/19/18 16:54 04/20/18 04:30 04/20/18 06:15 04/20/18 07:36 Lactic Acid 2.8 Level mmol/L (0.5-2.0 ) Platelet Count 66 57 10^3/UL (140-41 10^3/UL (140-4 5) 15) Prothrombin 20.3 Time Sec (11.9-14.9) Prothrombin 1.6 Time Ratio INR 1.73 International Normalized Rati o Activated 51.1 Partial Thrombo Sec (23.0-35.0) plast Time Thrombin Time 19.2 SEC (13.8-19.1) Sodium Level 128 mmol/L (135-144 ) Potassium 4.2 Level mmol/L (3.5-5.1 ) Chloride Level 90 mmol/L (97-110) Carbon Dioxide 22 Level mmol/L (21-31) Anion Gap 16 (5-13) Blood Urea 35 mg/dl (7-20) Nitrogen Creatinine 4.45 mg/dl (0.61-1.2 4) Est Glomerular 14 mL/min (>60) Filtrat Rate mL/min Glucose Level 108 mg/dl (70-220) Calcium Level 9.7 mg/dl (8.4-10.2 ) Magnesium 2.5 Level mg/dl (1.7-2.5) Total 2.5 Bilirubin mg/dl (0.2-1.3) Direct 0.50 Bilirubin mg/dl (0.00-0.2 0) Indirect 2.0 Bilirubin mg/dl (0-1.1) Aspartate Amino 38 IU/L (15-46) Transf (AST/SGO T) Alanine 24 IU/L (13-69) Aminotransferas e (ALT/SGPT) Alkaline 118 Phosphatase IU/L (42-121) Ammonia 22 umol/l (9-30) Total Protein 6.2 g/dl (6.1-8.1) Albumin 3.2 g/dl (3.3-4.9) Globulin 3.00 g/dl (1.3-3.2) Albumin/Globuli 1.06 n Ratio Hemoglobin A1c % (0-5.9) White Blood 9.6 Count 10^3/ul (4.8-1 0.8) Red Blood 1.75 Count 10^6/ul (4.70- 6.10) Hemoglobin 5.9 g/dl (14.0-18. 0) Hematocrit 17.5 % (42.0-52.0) Mean 100.0 Corpuscular fl (82.0-101.0 Volume ) Mean 33.7 Corpuscular pg (29.0-33.0) Hemoglobin Mean 33.7 Corpuscular g/dl (32.0-37. Hemoglobin Conc 0) ent Red Cell 17.5 Distribution % (11.5-14.5) Width Mean Platelet 11.3 Volume fl (7.4-10.4) Immature 0.500 Granulocytes % % (0.001-0.429 ) Neutrophils % % (39.0-77.0) Segmented 88 % (39-77) Neutrophils % (Manual) Lymphocytes % % (15.0-51.0) Lymphocytes % 8 % (15-51) (Manual) Monocytes % % (0.0-11.0) Monocytes % 3 % (0-11) (Manual) Eosinophils % % (0.0-7.0) Eosinophils % 1 % (0-7) (Manual) Basophils % % (0.0-2.0) Nucleated Red 0.0 Blood Cells % /100WBC (0.0-0 .0) Immature 0.050 Granulocytes # 10^3/ul (0.0-0 .031) Neutrophils # 10^3/ul (1.6-7 .5) Lymphocytes 0.7 (Manual) 10^3/ul (0.8-2 .9) Lymphocytes # 10^3/ul (0.8-2 .9) Monocytes # 10^3/ul (0.3-0 .9) Monocytes # 0.2 (Manual) 10^3/ul (0.3-0 .9) Eosinophils # 10^3/ul (0.0-0 .5) Basophils # 10^3/ul (0.0-0 .1) Nucleated Red 10^3/ul (0.0-0 Blood Cells # .0) Toxic 1+ (0-0) Granulation Platelet DECREASED Estimate Polychromasia 1+ (0-0) Hypochromasia 2+ (0-0) Anisocytosis 2+ (0-0) Macrocytosis 2+ (0-0) Target Cells 1+ (0-0) Path Consult JESS MADISON Signing MD rosalee Nye DAVID J Apr 20, 2018 15:05
[2018-04-20] MEDS: HYDROmorphONE 0.5 MG/0.5 ML SYG IV PRN (18:29)
[2018-04-20] MEDS: NORepinephrine 8MG/250 ML (PMX 250 ML IV SCH (21:30)
[2018-04-21] VITALS (65 sets, daily range): BP systolic 84–115; BP diastolic 63–83; PULSE 42–101; RESP 10–30
[2018-04-21] MEDS: ALBUMIN HUMAN 25% 50 ML IV SCH (03:13)
[2018-04-21] MEDS: PIPER-TAZO 2.25 GM/NS 50 ML IVPB SCH (05:25)
[2018-04-21] MEDS: MIDODRINE 5 MG TAB PO SCH ×2 (06:29→14:00)
[2018-04-21] MEDS: PANTOPRAZOLE 40 MG INJ IV SCH (06:29)
[2018-04-21] MEDS: ALBUTEROL/IPRATROPIUM (NEB) 3 ML AMP HHN SCH ×3 (08:00→20:00)
[2018-04-21] MEDS: FOLIC ACID 1 MG TAB PO SCH (09:00)
[2018-04-21] MEDS: THIAMINE 100 MG TAB PO SCH (09:00)
[2018-04-21] MEDS ORDERED: SPIRONOLACTONE 25 MG TAB PO SCH (09:00)
[2018-04-21] MEDS: COLLAGENASE 5 GM (UD JAR) TOP SCH (09:00)
--- NOTE | 2018-04-21 10:22 | CONS ---
Assessment/Plan Assessment/Plan Assessment/Plan (Daily) 1. ESRD on HD 2. severe sepsis due to PNA 3 . Pneumonia 4. recurrent symptomatic ascites 5. 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 Coagulopathy with thrombocytopenia due to liver cirrhosis 7. H/O HTN 8. Leucocytosis due to severe PNA Plan: family decided for inpatient hospice care will sign off, call us if any question s Consultation Date/Type/Reason Admit Date/Time Apr 19, 2018 at 13:43 Initial Consult Date 04/19/18 Type of Consult NEPHROLOGY Requesting Provider: SELVIN SMITH Date/Time of Note DATE: 04/21/18 TIME: 10:22 Exam/Review of Systems Exam Vitals Vital Signs Date Temp Pulse Resp B/P (MAP) Pulse Ox O2 O2 Flow FiO2 Time Delivery Rate 04/21/18 94 16 99/72 (81) 08:15 04/21/18 Nasal 2.0 08:00 Cannula 04/21/18 96 08:00 04/21/18 98.0 06:00 Intake and Output 04/20/18 04/20/18 04/21/18 1515:00 23:00 07:00 IntakeIntake Total 933.77 ml 544.075 ml 165.625 ml OutputOutput Total 0 ml 0 ml 0 ml BalanceBalance 933.77 ml 544.075 ml 165.625 ml Results Result Diagram: 04/20/18 0736 04/20/18 0430 Results 24hrs Laboratory Tests Test 04/21/18 04:26 04/21/18 05:18 Random Vancomycin Level 16.9 Lab Scanned Report BLOOD TRANSFUSION Medications Medication Current Medications Vancomycin HCl (Vanco Iv Per Pharmacy) VANCOMYCIN PER PHARMACY PER PROTOCOL XX ; Start 04/19/18 at 14:00 IV Flush (NS 3 ml) 3 ml PER PROTOCOL IV ; Start 04/19/18 at 14:00 Ondansetron HCl (Zofran Inj) 4 mg Q6H PRN IV NAUSEA/VOMITING; Start 04/19/18 at 14:00 Pantoprazole (Protonix Iv) 40 mg DAILY@06 IV Last administered on 04/21/18at 06:29; Admin Dose 40 MG; Start 04/20/18 at 06:00 Acetaminophen 100 ml @ 400 mls/hr Q8H PRN IVPB fever or pain Last administered on 04/20/18at 13:32; Admin Dose 400 MLS/HR; Start 04/19/18 at 14:00; Stop 04/21/18 at 13:59 Folic Acid (Folic Acid) 1 mg DAILY PO Last administered on 04/20/18 09:49; Admin Dose 1 MG; Start 04/20/18 at 09:00 Midodrine (Proamatine) 10 mg Q8 PO Last administered on 04/21/18 06:29; Admin Dose 10 MG; Start 04/19/18 at 22:00 Thiamine HCl (Vitamin B1) 100 mg DAILY PO Last administered on 04/20/18 09:49; Admin Dose 100 MG; Start 04/20/18 at 09:00 Albuterol/ Ipratropium (Duoneb) 3 ml Q6HWA RESP THERAPY HHN Last administered on 04/20/18 19:59; Admin Dose 3 ML; Start 04/19/18 at 20:00 Albuterol/ Ipratropium (Duoneb) 3 ml Q2H RESP THERAPY PRN HHN shortness of breath; Start 04/19/18 at 15:30 Norepinephrine 250 ml @ 1.875 mls/ hr TITRATE IV Last administered on 04/20/18 21:30; Admin Dose 9.375 MLS/HR; Start 04/19/18 at 22:00 Acetaminophen/ Hydrocodone Bitart ([place] (5/325)) 1 tab Q4H PRN PO MODERATE PAIN LEVEL 4-6; Start 04/19/18 at 23:30 Acetaminophen/ Hydrocodone Bitart ([place] (5/325)) 2 tab Q4H PRN PO PAIN LEVEL 6-10 Last administered on 04/19/18at 23:45; Admin Dose 2 TAB; Start 04/19/18 at 23:30 Miscellaneous Information (Pending Santyl Order For Wound Care) This patient sibley... PRN PRN XX WOUND CARE; Start 04/20/18 at 08:00 Piperacillin Sod/ Tazobactam Sod 50 ml @ 100 mls/hr Q12H IVPB Last administered on 04/21/18at 05:25; Admin Dose 100 MLS/HR; Start 04/20/18 at 18:00 Collagenase (Santyl) 1 applic DAILY TOP Last administered on 04/20/18 13:34; Admin Dose 1 APPLIC; Start 04/20/18 at 12:15 Collagenase (Santyl) 1 applic PRN PRN TOP WOUND CARE; Start 04/20/18 at 12:30 Hydromorphone HCl (Dilaudid) 0.5 mg Q3H PRN IV SEVERE PAIN LEVEL 7-10 Last administered on 04/20/18at 18:29; Admin Dose 0.5 MG; Start 04/20/18 at 15:00 Vancomycin HCl 250 ml @ 125 mls/hr 1200 IVPB ; Start 04/21/18 at 12:00; Stop 04/21/18 at 19:00 SHEELA BELLA MD Apr 21, 2018 10:22
--- NOTE | 2018-04-21 11:57 | PN ---
Date/Time of Note Date/Time of Note DATE: 04/21/18 TIME: 11:55 Objective Vitals Vital Signs Date Temp Pulse Resp B/P (MAP) Pulse Ox O2 O2 Flow FiO2 Time Delivery Rate 04/21/18 90 13 96/69 (78) 10:30 04/21/18 97 Nasal 2.0 10:00 Cannula 04/21/18 98.0 06:00 Intake and Output 04/20/18 04/20/18 04/21/18 1515:00 23:00 07:00 IntakeIntake Total 933.77 ml 544.075 ml 165.625 ml OutputOutput Total 0 ml 0 ml 0 ml BalanceBalance 933.77 ml 544.075 ml 165.625 ml Results Result Diagram: 04/20/18 0736 04/20/18 0430 Medications Medications Current Medications Vancomycin HCl (Vanco Iv Per Pharmacy) VANCOMYCIN PER PHARMACY PER PROTOCOL XX ; Start 04/19/18 at 14:00 IV Flush (NS 3 ml) 3 ml PER PROTOCOL IV ; Start 04/19/18 at 14:00 Ondansetron HCl (Zofran Inj) 4 mg Q6H PRN IV NAUSEA/VOMITING; Start 04/19/18 at 14:00 Pantoprazole (Protonix Iv) 40 mg DAILY@06 IV Last administered on 04/21/18at 06:29; Admin Dose 40 MG; Start 04/20/18 at 06:00 Acetaminophen 100 ml @ 400 mls/hr Q8H PRN IVPB fever or pain Last administered on 04/20/18at 13:32; Admin Dose 400 MLS/HR; Start 04/19/18 at 14:00; Stop at 13:59 Folic Acid (Folic Acid) 1 mg DAILY PO Last administered on 04/20/18at 09:49; Admin Dose 1 MG; Start 04/20/18 at 09:00 Midodrine (Proamatine) 10 mg Q8 PO Last administered on 04/21/18at 06:29; Admin Dose 10 MG; Start 04/19/18 at 22:00 Thiamine HCl (Vitamin B1) 100 mg DAILY PO Last administered on 04/20/18at 09:49; Admin Dose 100 MG; Start 04/20/18 at 09:00 Albuterol/ Ipratropium (Duoneb) 3 ml Q6HWA RESP THERAPY HHN Last administered on 04/20/18 19:59; Admin Dose 3 ML; Start 04/19/18 at 20:00 Albuterol/ Ipratropium (Duoneb) 3 ml Q2H RESP THERAPY PRN HHN shortness of breath; Start 04/19/18 at 15:30 Norepinephrine 250 ml @ 1.875 mls/ hr TITRATE IV Last administered on 04/20/18 21:30; Admin Dose 9.375 MLS/HR; Start 04/19/18 at 22:00 Acetaminophen/ Hydrocodone Bitart ([place] (5/325)) 1 tab Q4H PRN PO MODERATE PAIN LEVEL 4-6; Start 04/19/18 at 23:30 Acetaminophen/ Hydrocodone Bitart ([place] (5/325)) 2 tab Q4H PRN PO PAIN LEVEL 6-10 Last administered on 04/19/18 23:45; Admin Dose 2 TAB; Start 04/19/18 at 23:30 Miscellaneous Information (Pending Santyl Order For Wound Care) This patient sibley... PRN PRN XX WOUND CARE; Start 04/20/18 at 08:00 Piperacillin Sod/ Tazobactam Sod 50 ml @ 100 mls/hr Q12H IVPB Last administered on 04/21/18at 05:25; Admin Dose 100 MLS/HR; Start 04/20/18 at 18:00 Collagenase (Santyl) 1 applic DAILY TOP Last administered on 04/20/18at 13:34; Admin Dose 1 APPLIC; Start 04/20/18 at 12:15 Collagenase (Santyl) 1 applic PRN PRN TOP WOUND CARE; Start 04/20/18 at 12:30 Hydromorphone HCl (Dilaudid) 0.5 mg Q3H PRN IV SEVERE PAIN LEVEL 7-10 Last adm inistered on 04/20/18at 18:29; Admin Dose 0.5 MG; Start 04/20/18 at 15:00 Vancomycin HCl 250 ml @ 125 mls/hr 1200 IVPB Last administered on 04/21/18at 11:09; Admin Dose 125 MLS/HR; Start 04/21/18 at 12:00; Stop 04/21/18 at 19:00 VTE Prophylaxis Risk score (from Nsg)>0 risk: 7 SCD applied (from Nsg): No SCD contraindication: other Lines/Catheters IV Catheter Type: Maria in Place: Yes Cont'd maria catheter reason: urinary retention Assessment/Plan Hospital Course Subjective -Patient very sensitive to sound, still pending inpatient hospice to take over Objective Physical exam General: Patient is laying in bed and answers questions appropriately Mentation: Patient is alert and oriented 4, Head: Normocephalic atraumatic Eyes: EOMI, pupils reactive to light Neck: Supple, nontender, midline Respiratory: Clear to auscultation bilaterally Cardiovascular: regular rate, no obvious murmurs Gastrointestinal: Massively distended abdomen, bowel sounds heard. Neurological: Able to move upper extremity, unable to move lower extremity due to generalized weakness, however sensation intact. Skin: 2+ pitting edema in lower extremity bilaterally Assessment and plan Pneumonia -DuoNeb -IV antibiotic Septic shock -Pressors as needed -Albumin as needed -Blood culture -Secondary to above pneumonia Alcoholic liver cirrhosis -Patient understands that he has had alcoholic liver cirrhosis for many years -CT of the abdomen and pelvis noted -Continue spironolactone as blood pressure tolerates -Continue lactulose as blood pressure tolerates Elevated INR -Likely secondary to alcoholic liver cirrhosis -Vitamin K x1 subcu, improved significantly Anemia -Patient does have a history of anemia, transfuse as needed likely due to anemia of chronic disease Elevated lipase -Patient has no new abdominal pain, likely chronic elevated lipase, however will monitor, continue patient only on clears and if continues to have pain will put n.p.o. -CT abdomen pelvis not showing acute pancreatitis Hyponatremia -Patient is on hemodialysis and a cirrhotic, likely multifactorial with body hemodynamics, nephrology recommendations appreciated Disposition -Patient has decided to undergo inpatient hospice, pending hospice referral. -Patient is now on comfort care/Do Not Resuscitate -We will continue current treatment until inpatient hospice physician takes over -More than 40 minutes of critical care time was spent on this encounter SELVIN SMITH Apr 21, 2018 11:57
[2018-04-21] MEDS ORDERED: VANCOMYCIN 1 GM 250 ML IVPB SCH (12:00)
[2018-04-21] MEDS: HYDROmorphONE 0.5 MG/0.5 ML SYG IV PRN (14:35)
[2018-04-21] MEDS ORDERED: morphine 2 MG INJ IV PRN (15:30)
[2018-04-21] MEDS ORDERED: ACETAMINOPHEN 650 MG SUPP PR PRN (15:30)
[2018-04-21] MEDS ORDERED: LORAZEPAM 2 MG INJ IV PRN (15:30)
[2018-04-21] MEDS: morphine (DRIP) 100 MG/100 ML 100 ML IV SCH (16:30)
--- NOTE | 2018-04-21 20:02 | CONS ---
Assessment/Plan Assessment/Plan Hospital Course (Demo Recall) 58 yo male with multiple medical problems, want to proceed with comfort care under hospice DNR/DNI COMFORT CARE HOSPICE PAIN MORPHINE DRIP HOSPICE PROTOCOL Pneumonia Septic shock Alcoholic liver cirrhosis Elevated INR secondary to alcoholic liver cirrhosis post Vitamin K x1 subcu, improved significantly Anemia Elevated lipase CT abdomen pelvis not showing acute pancreatitis Patient has decided to undergo inpatient hospice Consultation Date/Type/Reason Admit Date/Time Apr 19, 2018 at 13:43 Date of Consultation: Apr 21, 2018 Type of Consult hospice management Requesting Provider: SELVIN SMITH Date/Time of Note DATE: 04/21/18 TIME: 19:55 Hx of Present Illness Patient is a 58 yo male with past medical history significant only for end-stage renal disease on hemodialysis, alcoholic liver cirrhosis, thrombocytopenia and anemia who presents to [facility] after being found hypotensive at his dialysis center. Patient arrived to his dialysis center complain of some neck pain and almost immediately after was found to have very low blood pressure was sent to the hospital. Currently patient is alert and oriented x4 and able to answer all questions. Patient has no acute comp laints at this time except for generalized weakness and for chronic issues including chronic abdominal pain, chronic shortness of breath as well as chronic chest discomfort.. When asked if there are any acute issues of new pain or issues patient denies. Patient is a resident at [facility] [place] [facility] Pt has declining medical course, he want to proceed with comfort measures Past Medical History Medical History: other (ESLD due to alcoholic liver cirrhsosi, ESRD on HD , Type II HRS, Coagulopathy) Home Meds Discontinued Reported Medications Thiamine* (Thiamine*) 50 Mg Tablet, 100 MG PO DAILY, TAB 04/19/18 Spironolactone* (Aldactone*) 25 Mg Tablet, 12.5 MG PO DAILY, #60 TAB 04/19/18 Guaifenesin-Dextromethorphan* (Robitussin* DM) 100MG/10MG/5ML Syrup, 10 ML PO Q6H PRN for COUGH, ML 04/19/18 Multivit/Ca Carb/B Cmplx/Fa* (Simran-Kee*) 1 Tab Tab, 1 TAB PO DAILY, TAB 04/19/18 Amino Acids/Protein Hydrolys (Pro-Stat 64 Liquid) 887 Ml Liquid, 30 ML PO BID 04/19/18 Pantoprazole* (Pantoprazole*) 40 Mg Tablet.dr, 40 MG PO AC BREAKFAST, TAB 04/19/18 Hydrocodone/Acetaminophen ([place] 5-325 Tablet) 1 Each Tablet, 1 EACH PO Q12 PRN for SEVERE PAIN LEVEL 7-10, TAB 04/19/18 Midodrine* (Midodrine*) 10 Mg Tablet, 10 MG PO TID PRN for ELEVATED BLOOD PRESSURE, TAB 04/19/18 Magnesium Oxide* (Magnesium Oxide*) 400 Mg Tablet, 400 MG PO BID, TAB 04/19/18 Lactulose* (Lactulose*) 20 Gm/30 Ml Solution, 20 GM PO TID PRN for CONSTIPATION, ML 04/19/18 Folic Acid* (Folic Acid*) 1 Mg Tablet, 1 MG PO DAILY, TAB 04/19/18 Epoetin Jose (Epogen) 10,000 Units/Ml Soln, 5000 UNITS SC TUE, THUR,SAT, VIAL 04/19/18 Medications Current Medications Albuterol/ Ipratropium (Duoneb) 3 ml Q6HWA RESP THERAPY HHN Last administered on 04/20/18at 19:59; Admin Dose 3 ML; Start 04/19/18 at 20:00 Albuterol/ Ipratropium (Duoneb) 3 ml Q2H RESP THERAPY PRN HHN shortness of breath; Start 04/19/18 at 15:30 Miscellaneous Information (Pending Santyl Order For Wound Care) This patient sibley. .. PRN PRN XX WOUND CARE; Start 04/20/18 at 08:00 Collagenase (Santyl) 1 applic DAILY TOP Last administered on 04/20/18at 13:34; Admin Dose 1 APPLIC; Start 04/20/18 at 12:15 Collagenase (Santyl) 1 applic PRN PRN TOP WOUND CARE; Start 04/20/18 at 12:30 Morphine Sulfate/ Sodium Chloride 100 ml @ 1 mls/hr TITRATE IV Last administered on 04/21/18at 16:30; Admin Dose 1 MLS/HR; Start 04/21/18 at 16:30 Morphine Sulfate (morphine) 1 mg Q2H PRN IV SEVERE PAIN LEVEL 7-10; Start 04/21/18 at 15:30 Lorazepam (Ativan) 0.5 mg Q4 PRN IV AGITATION/ANXIETY; Start 04/21/18 at 15:30 Acetaminophen (Tylenol Supp) 650 mg Q6H PRN [place] ELEVATED TEMPERATURE; Start 04/21/18 at 15:30 Allergies: Coded Allergies: No Known Allergy (Unverified , 04/19/18) Past Surgical History Past Surgical Hx: other (R chest permacath ) Social History Alcohol Use: none Smoking Status: Light tobacco smoker Drug Use: none Exam/Review of Systems Exam Vitals Vital Signs Date Temp Pulse Resp B/P (MAP) Pulse Ox O2 O2 Flow FiO2 Time Delivery Rate 04/21/18 85 18 89/64 (72) 96 Nasal 2.0 19:00 Cannula 04/21/18 98.0 06:00 Intake and Output 04/20/18 04/20/18 04/21/18 1515:00 23:00 07:00 IntakeIntake Total 933.77 ml 544.075 ml 165.625 ml OutputOutput Total 0 ml 0 ml 0 ml BalanceBalance 933.77 ml 544.075 ml 165.625 ml Exam General: Patient is laying in bed and answers questions appropriately Mentation: Patient is alert and oriented 4, Head: Normocephalic atraumatic Eyes: EOMI, pupils reactive to light Neck: Supple, nontender, midline Respiratory: Clear to auscultation bilaterally Cardiovascular: regular rate, no obvious murmurs Gastrointestinal: Massively distended abdomen, bowel sounds heard. Neurological: Unable to fully assess due to generalized weakness Skin: 2+ pitting edema in lower extremity bilaterally Results Result Diagram: 04/20/18 0736 04/20/18 0430 Results 24hrs Laboratory Tests Test 04/21/18 04:26 04/21/18 05:18 04/21/18 12:14 Random Vancomycin Level 16.9 Lab Scanned Report BLOOD TRANSFUSION REFERENCE LAB Medications Medication Current Medications Albuterol/ Ipratropium (Duoneb) 3 ml Q6HWA RESP THERAPY HHN Last administered on 04/20/18at 19:59; Admin Dose 3 ML; Start 04/19/18 at 20:00 Albuterol/ Ipratropium (Duoneb) 3 ml Q2H RESP THERAPY PRN HHN shortness of breath; Start 04/19/18 at 15:30 Miscellaneous Information (Pending [facility] Order For Wound Care) This patient sibley... PRN PRN XX WOUND CARE; Start 04/20/18 at 08:00 Collagenase (Santyl) 1 applic DAILY TOP Last administered on 04/20/18at 13:34; Admin Dose 1 APPLIC; Start 04/20/18 at 12:15 Collagenase (Santyl) 1 applic PRN PRN TOP WOUND CARE; Start 04/20/18 at 12:30 Morphine Sulfate/ Sodium Chloride 100 ml @ 1 mls/hr TITRATE IV Last administer ed on 04/21/18at 16:30; Admin Dose 1 MLS/HR; Start 04/21/18 at 16:30 Morphine Sulfate (morphine) 1 mg Q2H PRN IV SEVERE PAIN LEVEL 7-10; Start 04/21/18 at 15:30 Lorazepam (Ativan) 0.5 mg Q4 PRN IV AGITATION/ANXIETY; Start 04/21/18 at 15:30 Acetaminophen (Tylenol Supp) 650 mg Q6H PRN [place] ELEVATED TEMPERATURE; Start 04/21/18 at 15:30 JESSICA TURNER MD Apr 21, 2018 20:02
[2018-04-22] VITALS (11 sets, daily range): BP systolic 66–91; BP diastolic 44–66; PULSE 79–100; RESP 3–26
[2018-04-22] MEDS: ALBUTEROL/IPRATROPIUM (NEB) 3 ML AMP HHN SCH ×2 (08:00→13:35)
[2018-04-22] MEDS: COLLAGENASE 5 GM (UD JAR) TOP SCH ×2 (08:36→09:00)
[2018-04-22] MEDS: morphine (DRIP) 100 MG/100 ML 100 ML IV SCH (17:54)
--- NOTE | 2018-04-22 18:45 | HP ---
Date/Time of Note Date/Time of Note DATE: 04/22/18 TIME: 18:45 Assessment/Plan VTE Prophylaxis Risk score (from Nsg)>0 risk: 9 SCD applied (from Ns): No SCD contraindicated: patient refusal Pharmacological prophylaxis: NA/contraindicated Pharm contraindication: patient refusal Lines/Catheters IV [facility]from [facility] Saline Lock Urinary Cath still in place: No Assessment/Plan Hospital Course 58 yo male with multiple medical problems, want to proceed with comfort care under hospice DNR/DNI COMFORT CARE HOSPICE PAIN MORPHINE DRIP HOSPICE PROTOCOL Pneumonia Septic shock Alcoholic liver cirrhosis Elevated INR secondary to alcoholic liver cirrhosis post Vitamin K x1 subcu, improved significantly Anemia Elevated lipase CT abdomen pelvis not showing acute pancreatitis Patient has decided to undergo inpatient hospice Result Diagram: 04/20/18 0736 04/20/18 0430 HPI/ROS Admit Date/Time Admit Date/Time Apr 19, 2018 at 13:43 Hx of Present Illness Patient is a 58 yo male with past medical history significant only for end-stage renal disease on hemodialysis, alcoholic liver cirrhosis, thrombocytopenia and anemia who presents to [facility] after being found hypotensive at his dialysis center. Patient arrived to his dialysis center complain of some neck pain and almost immediately after was found to have very low blood pressure was sent to the hospital. Currently patient is alert and oriented x4 and able to answer all questions. Patient has no acute complaints at this time except for generalized weakness and for chronic issues including chronic abdominal pain, chronic shortness of breath as well as chronic chest discomfort.. When asked if there are any acute issues of new pain or i ssues patient denies. Patient is a resident at [facility] Pt has declining medical course, he want to proceed with comfort measures ROS Past Medical History Medical History: other (ESLD due to alcoholic liver cirrhsosi, ESRD on HD , Type II HRS, Coagulopathy) Home Meds Discontinued Reported Medications Thiamine* (Thiamine*) 50 Mg Tablet, 100 MG PO DAILY, TAB 04/19/18 Spironolactone* (Aldactone*) 25 Mg Tablet, 12.5 MG PO DAILY, #60 TAB 04/19/18 Guaifenesin-Dextromethorphan* (Robitussin* DM) 100MG/10MG/5ML Syrup, 10 ML PO Q6H PRN for COUGH, ML 04/19/18 Multivit/Ca Carb/B Cmplx/Fa* (Simran-Kee*) 1 Tab Tab, 1 TAB PO DAILY, TAB 04/19/18 Amino Acids/Protein Hydrolys (Pro-Stat 64 Liquid) 887 Ml Liquid, 30 ML PO BID 04/19/18 Pantoprazole* (Pantoprazole*) 40 Mg Tablet.dr, 40 MG PO AC BREAKFAST, TAB 04/19/18 Hydrocodone/Acetaminophen ([place] 5-325 Tablet) 1 Each Tablet, 1 EACH PO Q12 PRN for SEVERE PAIN LEVEL 7-10, TAB 04/19/18 Midodrine* (Midodrine*) 10 Mg Tablet, 10 MG PO TID PRN for ELEVATED BLOOD PRESSURE, TAB 04/19/18 Magnesium Oxide* (Magnesium Oxide*) 400 Mg Tablet, 400 MG PO BID, TAB 04/19/18 Lactulose* (Lactulose*) 20 Gm/30 Ml Solution, 20 GM PO TID PRN for CONSTIPATION, ML 04/19/18 Folic Acid* (Folic Acid*) 1 Mg Tablet, 1 MG PO DAILY, TAB 04/19/18 Epoetin Jose (Epogen) 10,000 Units/Ml Soln, 5000 UNITS SC TUE, THUR,SAT, VIAL 04/19/18 Medications Past Surgical History Past Surgical Hx: other (R chest permacath ) Social History Alcohol Use: none Smoking Status: Light tobacco smoker Drug Use: none PMH/Family/Social Past Medical History Medical History: other (ESLD due to alcoholic liver cirrhsosi, ESRD on HD , Type II HRS, Coagulopathy) Medications Current Medications Miscellaneous Information (Pending Santyl Order For Wound Care) This patient sibley... PRN PRN XX WOUND CARE; Start 04/20/18 at 08:00 Collagenase (Santyl) 1 applic DAILY TOP Last administered on 04/22/18at 09:00; Admin Dose 1 APPLIC; Start 04/20/18 at 12:15 Collagenase (Santyl) 1 applic PRN PRN TOP WOUND CARE; Start 04/20/18 at 12:30 Morphine Sulfate/ Sodium Chloride 100 ml @ 1 mls/hr TITRATE IV Last administered on 04/22/18at 17:54; Admin Dose 7 MLS/HR; Start 04/21/18 at 16:30 Morphine Sulfate (morphine) 1 mg Q2H PRN IV SEVERE PAIN LEVEL 7-10; Start 04/21/18 at 15:30 Lorazepam (Ativan) 0.5 mg Q4 PRN IV AGITATION/ANXIETY; Start 04/21/18 at 15:30 Acetaminophen (Tylenol Supp) 650 mg Q6H PRN [place] ELEVATED TEMPERATURE; Start 04/21/18 at 15:30 Coded Allergies: No Known Allergy (Unverified , 04/19/18) Past Surgical History Past Surgical Hx: other (R chest permacath ) Family History Significant Family History: no pertinent family hx Social History Alcohol Use: none Smoking Status: Light tobacco smoker Drug Use: none Exam/Review of Systems Vital Signs Vitals Vital Signs Date Temp Pulse Resp B/P (MAP) Pulse Ox O2 O2 Flow FiO2 Time Delivery Rate 04/22/18 2.0 16:00 04/22/18 98.0 89 4 68/44 (52) 14:56 04/22/18 96 Nasal 08:23 Cannula Intake and Output 04/21/18 04/21/18 04/22/18 1515:00 23:00 07:00 IntakeIntake Total 377.450 ml 6.5 ml 23.5 ml OutputOutput Total 0 ml 0 ml 0 ml BalanceBalance 377.450 ml 6.5 ml 23.5 ml Exam Exam General: Patient is laying in bed, on morhine drip , nad Head: Normocephalic atraumatic Eyes: EOMI, pupils reactive to light Neck: Supple, nontender, midline Respiratory: Clear to auscultation bilaterally Cardiovascular: regular rate, no obvious murmurs Gastrointestinal: Massively distended abdomen, bowel sounds heard. Neurological: Unable to fully assess due to generalized weakness Skin: 2+ pitting edema in lower extremity bilaterally JESSICA TURNER MD Apr 22, 2018 18:45
[2018-04-22] MEDS ORDERED: SCOPOLAMINE 1.5 MG PATCH TRANSDERM SCH (20:00)
[2018-04-22] MEDS: ATROPINE SULFATE 1% 5ML SL PRN ×2 (20:16→23:45)
[2018-04-23 08:03] VITALS: BP 64/38; PULSE 96; RESP 15
[2018-04-23] MEDS: ATROPINE SULFATE 1% 5ML SL PRN ×5 (08:16→21:41)
[2018-04-23] MEDS: morphine (DRIP) 100 MG/100 ML 100 ML IV SCH ×2 (08:47→20:37)
[2018-04-23 14:02] VITALS: BP 66/37; PULSE 95; RESP 12
[2018-04-23] MEDS: COLLAGENASE 5 GM (UD JAR) TOP SCH (15:12)
--- NOTE | 2018-04-23 23:12 | CONS ---
Assessment/Plan Assessment/Plan Hospital Course (Demo Recall) 58 yo male with multiple medical problems, want to proceed with comfort care under hospice DNR/DNI COMFORT CARE HOSPICE PAIN MORPHINE DRIP HOSPICE PROTOCOL Pneumonia Septic shock Alcoholic liver cirrhosis Elevated INR secondary to alcoholic liver cirrhosis post Vitamin K x1 subcu, improved significantly Anemia Elevated lipase CT abdomen pelvis not showing acute pancreatitis Patient has decided to undergo inpatient hospice Consultation Date/Type/Reason Admit Date/Time Apr 19, 2018 at 13:43 Initial Consult Date 04/21/18 Type of Consult hospice management Requesting Provider: SELVIN SMITH Date/Time of Note DATE: 04/23/18 TIME: 23:11 24 HR Interval Summary Free Text/Dictation all noted NAD ON MORPHINE DRIP Exam/Review of Systems Exam Vitals Vital Signs Date Temp Pulse Resp B/P (MAP) Pulse Ox O2 O2 Flow FiO2 Time Delivery Rate 04/23/18 Nasal 2.0 20:00 Cannula 04/23/18 97.6 95 12 66/37 (47) 92 14:02 Intake and Output 04/22/18 04/22/18 04/23/18 1515:00 23:00 07:00 IntakeIntake Total 27 ml 52 ml 56 ml BalanceBalance 27 ml 52 ml 56 ml Exam Head: Normocephalic atraumatic Eyes: EOMI, pupils reactive to light Neck: Supple, nontender, midline Respiratory: CONGESTED Cardiovascular: regular rate, no obvious murmurs Gastrointestinal: Massively distended abdomen, bowel sounds heard. Skin: 2+ pitting edema in lower extremity bilaterally Results Result Diagram: 04/20/18 0736 04/20/18 0430 Medications Medication Current Medications Miscellaneous Information (Pending Santyl Order For Wound Care) This patient sibley... PRN PRN XX WOUND CARE; Start 04/20/18 at 08:00 Collagenase (Santyl) 1 applic DAILY TOP Last administered on 04/23/18at 15:12; Admin Dose 1 APPLIC; Start 04/20/18 at 12:15 Collagenase (Santyl) 1 applic PRN PRN TOP WOUND CARE; Start 04/20/18 at 12:30 Morphine Sulfate/ Sodium Chloride 100 ml @ 1 mls/hr TITRATE IV Last administered on 04/23/18at 20:37; Admin Dose 9 MLS/HR; Start 04/21/18 at 16:30 Morphine Sulfate (morphine) 1 mg Q2H PRN IV SEVERE PAIN LEVEL 7-10; Start 04/21/18 at 15:30 Lorazepam (Ativan) 0.5 mg Q4 PRN IV AGITATION/ANXIETY; Start 04/21/18 at 15:30 Acetaminophen (Tylenol Supp) 650 mg Q6H PRN [place] ELEVATED TEMPERATURE; Start 04/21/18 at 15:30 Scopolamine (Transderm-Scop) 1 patch Q72H TRANSDERM Last administered on 04/22/18at 20:15; Admin Dose 1 PATCH; Start 04/22/18 at 20:00 Atropine Sulfate (Atropine Sulfate) 2 drop Q2H PRN SL PRN SECRETIONS Last administered on 04/23/18at 21:41; Admin Dose 2 DROP; Start 04/22/18 at 19:00 JESSICA TURNER MD Apr 23, 2018 23:12
[2018-04-24] MEDS: ATROPINE SULFATE 1% 5ML SL PRN (06:18)
--- NOTE | 2018-04-24 18:05 | DS ---
Date/Time of Note Date/Time of Note DATE: 04/24/18 TIME: 18:04 Discharge Summary Admission/Discharge Info Admit Date/Time Apr 19, 2018 at 13:43 Discharge Date/Time Apr 24, 2018 at 11:08 Hx of Present Illness Patient is a 58 yo male with past medical history significant only for end-stage renal disease on hemodialysis, alcoholic liver cirrhosis, thrombocytopenia and anemia who presents to [facility] after being found hypotensive at his dialysis center. Patient arrived to his dialysis center complain of some neck pain and almost immediately after was found to have very low blood pressure was sent to the hospital. Currently patient is alert and oriented x4 and able to answer all questions. Patient has no acute complaints at this time except for generalized weakness and for chronic issues including chronic abdominal pain, chronic shortness of breath as well as chronic chest discomfort.. When asked if there are any acute issues of new pain or issues patient denies. Patient is a resident at [facility] Pt has declining medical course, he want to proceed with comfort measures Hospital Course 58 yo male with multiple medical problems, want to proceed with comfort care under hospice DNR/DNI COMFORT CARE HOSPICE PAIN MORPHINE DRIP HOSPICE PROTOCOL Pneumonia Septic shock Alcoholic liver cirrhosis Elevated INR secondary to alcoholic liver cirrhosis post Vitamin K x1 subcu, improved significantly Anemia Elevated lipase CT abdomen pelvis not showing acute pancreatitis Patient has decided to undergo inpatient hospice Home Meds Discontinued Reported Medications Thiamine* (Thiamine*) 50 Mg Tablet, 100 MG PO DAILY, TAB 04/19/18 Spironolactone* (Aldactone*) 25 Mg Tablet, 12.5 MG PO DAILY, #60 TAB 04/19/18 Guaifenesin-Dextromethorphan* (Robitussin* DM) 100MG/10MG/5ML Syrup, 10 ML PO Q6H PRN for COUGH, ML 04/19/18 Multivit/Ca Carb/B Cmplx/Fa* (Simran-Kee*) 1 Tab Tab, 1 TAB PO DAILY, TAB 04/19/18 Amino Acids/Protein Hydrolys (Pro-Stat 64 Liquid) 887 Ml Liquid, 30 ML PO BID 04/19/18 Pantoprazole* (Pantoprazole*) 40 Mg Tablet.dr, 40 MG PO AC BREAKFAST, TAB 04/19/18 Hydrocodone/Acetaminophen ([place] 5-325 Tablet) 1 Each Tablet, 1 EACH PO Q12 PRN for SEVERE PAIN LEVEL 7-10, TAB 04/19/18 Midodrine* (Midodrine*) 10 Mg Tablet, 10 MG PO TID PRN for ELEVATED BLOOD PRESSURE, TAB 04/19/18 Magnesium Oxide* (Magnesium Oxide*) 400 Mg Tablet, 400 MG PO BID, TAB 04/19/18 Lactulose* (Lactulose*) 20 Gm/30 Ml Solution, 20 GM PO TID PRN for CONSTIPATION, ML 04/19/18 Folic Acid* (Folic Acid*) 1 Mg Tablet, 1 MG PO DAILY, TAB 04/19/18 Epoetin Jose (Epogen) 10,000 Units/Ml Soln, 5000 UNITS SC ADRIEN CRUZ,ZINA, VIAL 04/19/18 Primary Care Provider MD JOHNNY Johnson VERA M MD Apr 24, 2018 18:05
== END 2018-04-24 11:08 | disposition expired | DRG 871 ==
LOC: E/R 11:39 → ICU 13:43 → PP2 04-22 06:32
PROVIDERS: ADMIT Internal Medicine; ATTEND Internal Medicine Hematology & Oncology
PROC: 06HC33Z Insertion of Infusion Device into Right Common Iliac Vein, Percutaneous Approach (ICD-10-PCS; principal; 2018-04-19)
DX: A41.9 Sepsis, unspecified organism (principal); R65.21 Severe sepsis with septic shock; J18.9 Pneumonia, unspecified organism; N18.6 End stage renal disease; E87.1 Hypo-osmolality and hyponatremia; E87.2 Acidosis; I12.0 Hypertensive chronic kidney disease with stage 5 chronic kidney disease or end stage renal disease; D68.4 Acquired coagulation factor deficiency; K70.31 Alcoholic cirrhosis of liver with ascites; K72.90 Hepatic failure, unspecified without coma; D69.6 Thrombocytopenia, unspecified; D64.9 Anemia, unspecified; Z51.5 Encounter for palliative care; Z66 Do not resuscitate; Z99.2 Dependence on renal dialysis
CPT/HCPCS: 36415; 36430; 36556; 71045; 74176; 76942; 80053; 80202; 82140; 83036; 83605; 83690; 83735; 84484; 85025; 85049; 85610; 85670; 85730; 86644; 86850; 86900; 86901; 86920; 87040; 87081; 93005; 94640; 94664; 96365; 96368; 96375; C9113; J0131; J1170; J2270; J2543; J3370; J7030; P9016; P9047